=== PATIENT | male | born 1980 | race African-American/Black ===

== ENCOUNTER → 2020-10-30 | Outpatient (CLI) | payer OTHER | LOC: MHCPAIN 10:25 | DX: M47.817 Spondylosis without myelopathy or radiculopathy, lumbosacral region (principal); M54.5 Low back pain; M53.3 Sacrococcygeal disorders, not elsewhere classified; M89.29 Other disorders of bone development and growth, multiple sites | CPT/HCPCS: G0463 ==

== ENCOUNTER → 2021-03-21 | Outpatient (CLI) | payer OTHER | LOC: MHCPAIN 03-07 10:18 | DX: M47.817 Spondylosis without myelopathy or radiculopathy, lumbosacral region (principal); M54.5 Low back pain; M53.3 Sacrococcygeal disorders, not elsewhere classified | CPT/HCPCS: G0463 ==

== ENCOUNTER → 2021-03-27 | Outpatient (CLI) | payer OTHER | LOC: MHCPAIN 10:09 | DX: M47.817 Spondylosis without myelopathy or radiculopathy, lumbosacral region (principal); M54.5 Low back pain; M53.3 Sacrococcygeal disorders, not elsewhere classified; G89.29 Other chronic pain | CPT/HCPCS: G0463 ==

== ENCOUNTER → 2021-04-04 | Outpatient (CLI) | payer OTHER | LOC: MHCPAIN 07:39 | DX: M47.817 Spondylosis without myelopathy or radiculopathy, lumbosacral region (principal); M54.5 Low back pain; M53.3 Sacrococcygeal disorders, not elsewhere classified ==

== ENCOUNTER → 2021-04-17 | Outpatient (CLI) | payer OTHER | LOC: MHCPAIN 08:49 | DX: M53.3 Sacrococcygeal disorders, not elsewhere classified (principal); M51.27 Other intervertebral disc displacement, lumbosacral region; M89.29 Other disorders of bone development and growth, multiple sites | CPT/HCPCS: G0463 ==

== ENCOUNTER → 2021-04-25 | Outpatient (CLI) | payer OTHER | LOC: MHCPAIN 07:44 | DX: M47.818 Spondylosis without myelopathy or radiculopathy, sacral and sacrococcygeal region (principal); M53.3 Sacrococcygeal disorders, not elsewhere classified | CPT/HCPCS: G0260; J1040; Q9967 ==